=== PATIENT | female | born 1980 | race Caucasian/White ===

== ENCOUNTER → 2017-03-11 | Outpatient (CLI) | payer OTHER ==
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
== END ==
LOC: SLEEP 14:21
PROVIDERS: ATTEND Internal Medicine Critical Care Medicine
DX: E66.9 Obesity, unspecified (principal); J35.1 Hypertrophy of tonsils; F31.9 Bipolar disorder, unspecified; F41.9 Anxiety disorder, unspecified; F17.200 Nicotine dependence, unspecified, uncomplicated; Z88.0 Allergy status to penicillin; Z79.899 Other long term (current) drug therapy; Z68.41 Body mass index [BMI] 40.0-44.9, adult
CPT/HCPCS: 99211

== ENCOUNTER → 2017-08-12 | Outpatient (CLI) | payer OTHER ==
--- NOTE | 2017-08-12 16:11 | PN ---
PROGRESS NOTE Christina is a 37-year-old female patient coming to see me in followup regarding her compliancy for obstructive sleep apnea. The patient has symptomatic GIANFRANCO with an AHI of 15.9. The patient has had successful CPAP therapy at a pressure of 11 cm of water with a C-flex of 3. She is using a Simplus full-face mask. After some difficulty, the patient became much more comfortable with the treatment and currently she is benefitting from the treatment. She is wearing it every night. Her compliance data over the past 30 days show that the patient has been achieving around 6.3 hours of CPAP use per night. Her compliance for more than 4 hours is 28/30. The AHI is down to 0.7 and the leak factor is only 7 L/minute. The patient is trying to lose weight; however, she has not been able to do so and she has gained around 6 pounds since her last evaluation. Overall she is feeling better. She is happy with the treatment. Sleep quality has improved. She feels much more alert and refreshed during the day. REVIEW OF SYSTEMS: CONSTITUTIONAL: Positive for weight gain. No snoring while on CPAP treatment. No nocturnal shortness of breath, chest pain or palpitations or heartburn. No body aches or pains. No nausea or vomiting. No falling asleep during day-to-day activities. No sleep paralysis, hallucinations or cataplexy. PHYSICAL EXAMINATION: BP is 140/93, pulse 94, respiration 16, weight 277, temperature 98.0, saturation 98% on room air. GENERAL APPEARANCE: Calm and comfortable. Head is atraumatic, normocephalic. Neck is supple. There is no JVD. No goiter or neck masses. Poor dental conditions. The patient has a Mallampati class IV. LUNGS: Clear to auscultation. HEART: Heart sounds are regular rate and rhythm. Normal S1, S2. No S3, S4. No murmurs. ABDOMEN: Soft, nontender. No organomegaly. EXTREMITIES: No edema. No cyanosis or clubbing. NEUROLOGIC: Alert and oriented x3. No focal neurological deficits. PSYCHIATRIC: The patient has an appropriate mood and affect. SKIN: Negative for any wounds or ulceration. IMPRESSION: 1. Symptomatic obstructive sleep apnea with an AHI of 15, currently undergoing successful CPAP therapy at a pressure of 11 cm of water with a C-flex of 3 with a full-face mask. 2. Obesity with interval weight gain; currently up to 277 pounds. 3. Bilateral tonsillar enlargement. 4. Chronic anxiety. 5. Bipolar disorder. 6. Poor dental condition. PLAN: 1. Recommend weight loss. 2. Continue CPAP therapy at the same level of pressure. 3. Continue the Simplus full-face mask. 4. No driving, especially if feeling drowsy or sleepy. 5. Sleep hygiene with sleeping 7-1/2 hours per night. 6. See me back in a year's time, earlier if needed. Her treatment is successful at this point. MMODL / IJN: [id number] /
== END | disposition home or self-care (01) ==
LOC: SLEEP 13:50
PROVIDERS: ATTEND Internal Medicine Critical Care Medicine
DX: G47.33 Obstructive sleep apnea (adult) (pediatric) (principal); Z99.89 Dependence on other enabling machines and devices; E66.9 Obesity, unspecified; J35.1 Hypertrophy of tonsils; F31.9 Bipolar disorder, unspecified; K08.89 Other specified disorders of teeth and supporting structures

== ENCOUNTER 2018-04-03 05:38 | Observation (INO) | payer OTHER ==
[2018-04-03 06:21] LABS: Appearance,Urine Clear (Clear); Basophils % (A) 0 %; Bilirubin,Urine 1+ (Negative); Blood,Urine Negative (Negative); Color,Urine Yellow; Eosinophils # (A) 0.1 k/uL (0-0.7); Eosinophils % (A) 1 %; Glucose,Urine (UA) Negative (Negative); HCT 41.7 % (34.0-46.0); HGB 13.8 gm/dL (11.4-16.0); Ketones,Urine 1+ (Negative); Leukocyte Esterase,Urine Negative (Negative); Lymphocytes # (A) 0.4 k/uL (1.0-4.8); Lymphocytes % (A) 5 %; MCH 29.6 pg (25.0-35.0); MCV 89.9 fL (80.0-100.0); Mean Platelet Volume 7.6; Monocytes # (A) 0.1 k/uL (0-1.0); Monocytes % (A) 1 %; Neutrophils # (A) 8.2 k/uL (1.3-7.7); Neutrophils % (A) 93 %; Nitrite,Urine Negative (Negative); Platelet Count 208 k/uL (150-450); Protein,Urine Negative (Negative); RBC 4.65 m/uL (3.80-5.40); RDW 13.7 % (11.5-15.5); Specific Gravity,Urine 1.019 (1.001-1.035); Urobilinogen,Urine <2.0 mg/dL (<2.0); WBC 8.9 k/uL (3.8-10.6)
[2018-04-03] MEDS ORDERED: ONDANSETRON 4 MG/2 ML VIAL IVP PRN (06:23)
[2018-04-03] MEDS ORDERED: NALOXONE 0.4 MG/ML 1 ML VIAL IV PRN (06:23)
--- NOTE | 2018-04-03 06:27 | ED ---
Abdominal Pain HPI - General Chief Complaint: Abdominal Pain Stated Complaint: Gallstones Time Seen by Provider: 04/03/18 05:45 Source: patient, EMS Mode of arrival: EMS Limitations: no limitations - History of Present Illness Initial Comments: This patient is a 38-year-old woman who presents as a transfer from [facility]. The patient had gone there experiencing abdominal pain. She had a computed tomography scan that showed acute cholecystitis with a common bile duct stone. The patient has been having intermittent episodes of epigastric and right upper quadrant abdominal pain since November. She had a workup that did show gallstones in the gallbladder, and she had been scheduled to follow with one of the surgeons local to that facility on the of this month. The patient began to have intractable abdominal pain into the evening and went to the other hospital where the CT scan did show what appeared to be stone in the common bile duct with significant dilatation. The patient also had elevated transaminases and bilirubin. She does receive analgesics and a dose of meropenem. She was transferred here for further treatment. MD Complaint: abdominal pain -: hour(s) Location: epigastric Radiation: back Migration to: no migration Severity: moderate Quality: cramping, sharp Consistency: constant Improves With: nothing Worsens With: nothing Associated Symptoms: nausea - Related Data Allergies Allergy/AdvReac Type Severity Reaction Status Date / Time Iodinated Contrast- Oral and Allergy Itching Verified 04/03/18 05:49 IV Dye Penicillins Allergy Unknown Verified 04/03/18 05:49 Childhood Review of Systems ROS Statement: Those systems with pertinent positive or pertinent negative responses have been documented in the HPI. ROS Other: All systems not noted in ROS Statement are negative. Constitutional: Denies: fever, chills Respiratory: Denies: cough, dyspnea Cardiovascular: Denies: chest pain, palpitations Gastrointestinal: Reports: as per HPI, abdominal pain, nausea. Denies: diarrhea , constipation, melena, hematochezia Genitourinary: Denies: dysuria, hematuria Musculoskeletal: Denies: back pain Skin: Denies: rash Neurological: Denies: headache, weakness, numbness Past Medical History Past Medical History: Hypertension Additional Past Medical History / Comment(s): cholecystitis. sleep apnea. endometriosis. History of Any Multi-Drug Resistant Organisms: None Reported Past Surgical History: Tubal Ligation, Uterine Ablation Past Psychological History: Bipolar Smoking Status: Current every day smoker Past Alcohol Use History: None Reported Past Drug Use History: None Reported General Exam Limitations: no limitations General appearance: alert, in no apparent distress, obese Head exam: Present: atraumatic, normocephalic Eye exam: Present: normal appearance, scleral icterus. Absent: conjunctival injection ENT exam: Present: mucous membranes dry Neck exam: Present: normal inspection Respiratory exam: Present: normal lung sounds bilaterally. Absent: respiratory distress, wheezes, rales, rhonchi, stridor Cardiovascular Exam: Present: regular rate, normal rhythm, normal heart sounds. Absent: systolic murmur, diastolic murmur, rubs, gallop GI/Abdominal exam: Present: soft, tenderness. Absent: distended, guarding, rebound, rigid, mass Extremities exam: Present: normal inspection, normal capillary refill. Absent: pedal edema, calf tenderness Back exam: Present: normal inspection. Absent: CVA tenderness (R), CVA tenderness (L) Neurological exam: Present: alert Skin exam: Present: warm, dry, intact, rash, other (Mild jaundice). Absent: normal color Course Vital Signs 04/03/18 05:40 Temperature 98.8 F Pulse Rate 111 H Respiratory 20 Rate Blood Pressure 130/99 O2 Sat by Pulse 96 Oximetry Medical Decision Making - Lab Data Result diagrams: 04/03/18 06:10 Lab Results 04/03/18 04/03/18 04/03/18 Range/Units 06:10 06:10 06:10 WBC 8.9 (3.8-10.6) k/uL RBC 4.65 (3.80-5.40) m/uL Hgb 13.8 (11.4-16.0) gm/dL Hct 41.7 (34.0-46.0) % MCV 89.9 (80.0-100.0) fL MCH 29.6 (25.0-35.0) pg MCHC 33.0 (31.0-37.0) g/dL RDW 13.7 (11.5-15.5) % Plt Count 208 (150-450) k/uL Neutrophils % 93 % Lymphocytes % 5 % Monocytes % 1 % Eosinophils % 1 % Basophils % 0 % Neutrophils # 8.2 H (1.3-7.7) k/uL Lymphocytes # 0.4 L (1.0-4.8) k/uL Monocytes # 0.1 (0-1.0) k/uL Eosinophils # 0.1 (0-0.7) k/uL Basophils # 0.0 (0-0.2) k/uL Urine Color Yellow Urine Appearance Clear (Clear) Urine pH 7.0 (5.0-8.0) Ur Specific [place] 1.019 (1.001-1.035) Urine Protein Negative (Negative) Urine Glucose (UA) Negative (Negative) Urine Ketones 1+ H (Negative) Urine Blood Negative (Negative) Urine Nitrite Negative (Negative) Urine Bilirubin 1+ H (Negative) Urine Urobilinogen <2.0 (<2.0) mg/dL Ur Leukocyte Esterase Negative (Negative) Urine HCG, Qual Not Detected (Not Detectd) Disposition Clinical Impression: Abdominal pain, Acute cholecystitis, Common bile duct stone, Jaundice, Elevated transaminase level Disposition: ADMITTED IP TO THIS [facility] Condition: Fair Referrals: Thomas Kowalski MD [Primary Care Provider] - 1-2 days
[2018-04-03 06:36] LABS: ALT 460 U/L (9-52); AST 293 U/L (14-36); Albumin 3.8 g/dL (3.5-5.0); Alkaline Phosphatase 325 U/L (38-126); Amylase 41 U/L (30-110); Anion Gap 7 mmol/L; Blood Urea Nitrogen 4 mg/dL (7-17); Calcium 9.6 mg/dL (8.4-10.2); Carbon Dioxide 24 mmol/L (22-30); Chloride 107 mmol/L (98-107); Glucose 146 mg/dL (74-99); Lipase 32 U/L (23-300); Potassium 4.1 mmol/L (3.5-5.1); Sodium 138 mmol/L (137-145); Total Bilirubin 5.9 mg/dL (0.2-1.3); Total Protein 7.3 g/dL (6.3-8.2)
[2018-04-03] MEDS: MORPHINE SULFATE 4 MG/ML SYRINGE IV PRN ×4 (09:45→23:12)
[2018-04-03] MEDS: PANTOPRAZOLE 40 MG/10 ML VIAL IV SCH (09:45)
[2018-04-03] MEDS: SODIUM CHLORIDE 0.9% 1,000 ML IV SCH ×3 (10:25→20:48)
[2018-04-03 10:31] VITALS: BMI 40.0
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
[2018-04-03] MEDS ORDERED: LEVOFLOXACIN 500MG-D5W PMX 500 MG in DEXTROSE/WATER 1 100ML.BAG IVPB SCH (19:00)
[2018-04-03] MEDS ORDERED: QUEtiapine 100 MG TAB PO SCH (21:00)
[2018-04-03] MEDS: NICOTINE 21MG/24HR PATCH TRANSDERM SCH (21:31)
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
[2018-04-03] MEDS: HEPARIN SODIUM,PORCINE 5,000 UNIT/ML 1 ML VIAL SQ SCH (23:16)
[2018-04-04] MEDS: SODIUM CHLORIDE 0.9% 1,000 ML IV SCH ×2 (01:34→13:07)
[2018-04-04] MEDS: MORPHINE SULFATE 4 MG/ML SYRINGE IV PRN ×3 (03:24→14:10)
[2018-04-04 06:15] LABS: Basophils % (A) 0 %; Eosinophils # (A) 0.1 k/uL (0-0.7); Eosinophils % (A) 2 %; HCT 37.9 % (34.0-46.0); HGB 12.3 gm/dL (11.4-16.0); Lymphocytes # (A) 2.2 k/uL (1.0-4.8); Lymphocytes % (A) 28 %; MCH 29.6 pg (25.0-35.0); MCHC 32.5 g/dL (31.0-37.0); MCV 91.1 fL (80.0-100.0); Monocytes # (A) 0.5 k/uL (0-1.0); Monocytes % (A) 6 %; Neutrophils # (A) 5.1 k/uL (1.3-7.7); Neutrophils % (A) 63 %; Platelet Count 190 k/uL (150-450); RBC 4.16 m/uL (3.80-5.40); RDW 13.9 % (11.5-15.5)
[2018-04-04 06:24] LABS: ALT 377 U/L (9-52); AST 211 U/L (14-36); Albumin 3.2 g/dL (3.5-5.0); Alkaline Phosphatase 232 U/L (38-126); Anion Gap 4 mmol/L; Blood Urea Nitrogen 8 mg/dL (7-17); Calcium 9.2 mg/dL (8.4-10.2); Carbon Dioxide 27 mmol/L (22-30); Chloride 108 mmol/L (98-107); Glucose 90 mg/dL (74-99); Sodium 139 mmol/L (137-145); Total Bilirubin 1.5 mg/dL (0.2-1.3); Total Protein 6.3 g/dL (6.3-8.2)
[2018-04-04] MEDS ORDERED: INDOMETHACIN 50MG SUPPOSITORY RECTAL STA (09:19)
[2018-04-04] MEDS: PANTOPRAZOLE 40 MG/10 ML VIAL IV SCH (09:36)
[2018-04-04] MEDS ORDERED: GLYCOPYRROLATE 0.2 MG/ML 2 ML VIAL ONE (10:28)
[2018-04-04] MEDS ORDERED: GLUCAGON 1 MG/ML VIAL ONE (10:28)
[2018-04-04] MEDS ORDERED: NEOSTIGMINE 1 MG/ML 10 ML VIAL ONE (10:28)
[2018-04-04] MEDS ORDERED: MIDAZOLAM 2 MG/2 ML VIAL ONE (10:28)
[2018-04-04] MEDS ORDERED: ONDANSETRON 4 MG/2 ML VIAL ONE (10:28)
[2018-04-04] MEDS ORDERED: LIDOCAINE 1% INJ 10MG/ML (20 ML MDV) ONE (10:28)
[2018-04-04] MEDS ORDERED: PROPOFOL 10 MG/ML 20 ML VIAL IV ONE (10:28)
[2018-04-04] MEDS ORDERED: methylPREDNISolone SOD SUCCI 125 MG/2 ML VIAL ONE (10:28)
[2018-04-04] MEDS ORDERED: diphenhydrAMINE 50 MG/ML 1 ML VIAL ONE (10:28)
[2018-04-04] MEDS ORDERED: ROCURONIUM BROMIDE 10 MG/ML 10 ML VIAL IV ONE (10:28)
[2018-04-04] MEDS ORDERED: SUCCINYLCHOLINE CHLORIDE VIAL 200 MG/10 ML VIAL IV ONE (10:28)
[2018-04-04] MEDS ORDERED: fentaNYL (PF) 50 MCG/ML 2 ML AMP ONE (10:28)
[2018-04-04] MEDS ORDERED: IV FLUID CONTINUATION 1,000 ML IV ONE (10:31)
--- NOTE | 2018-04-04 10:32 | P.CONS ---
History of Present Illness - Reason for Consult Consult date: 04/03/18 Bile duct stone, elevated bilirubin Requesting physician: No Covarrubias - Chief Complaint Abdominal pain - History of Present Illness The patient is a 38-year-old female with a known history of sleep apnea and hypertension who presents as a transfer from an outside hospital for CT findings of a bile duct stone. Per the patient she initially presents to the hospital with complaints of abdominal pain. The patient has had abdominal pain which has been occurring and has had evaluation in the outpatient setting with a diagnosis of symptomatic cholelithiasis. The patient had been scheduled to follow up with surgery for outpatient cholecystectomy next week, however came to the hospital when she had a bout of abdominal pain that was severe in nature. She reports that the pain is generally located above the umbilicus, severe in intensity and can be associated with nausea. The patient states that when the attacks occur and can last for hours in duration. On evaluation the patient had a computed tomography scan at [facility] and was told that she had a bile duct stone. On presentation to [facility] the patient had labs performed which showed a total bilirubin 5.9, alkaline phosphatase 325 , AST 293 and ALTs for 60. The patient denies any fevers or chills and had a WBC of 8.9 and a hemoglobin of 13.8 on presentation. Review of Systems REVIEW OF SYSTEMS: CONSTITUTIONAL: Denies any fevers, chills, weight change or fatigue. CARDIOVASCULAR: Denies any chest pain, palpitations high or low blood pressures RESPIRATORY: Denies any shortness of breath, hemoptysis or cough. GENITOURINARY: No dysuria or hematuria. MUSCULOSKELETAL: No weakness reported. SKIN: Denies any new rashes or lesions, jaundice or pallor. PSYCHIATRIC: Denies any depression or anxiety. NEUROLOGY: Denies headache, denies any new focal deficits. EARS/NOSE/THROAT: No recent hearing change, congestion, nasal discharge or sore throat. EYES: No pain in eyes, discharge or change in vision. GASTROINTESTINAL: As per HPI. Past Medical History Past Medical History: Hypertension, Sleep Apnea/CPAP/BIPAP Additional Past Medical History / Comment(s): Migraines, chronic back pain, bilateral carpal tunnel syndrome-worse of L side, umbilical hernia, gallstones , GIANFRANCO with Cpap History of Any Multi-Drug Resistant Organisms: None Reported Past Surgical History: Tubal Ligation, Uterine Ablation Additional Past Surgical History / Comment(s): D&C, hysteroscopy with novasure ablation. Past Anesthesia/Blood Transfusion Reactions: No Reported Reaction Smoking Status: Current every day smoker - Past Family History Father Family Medical History: Cancer Additional Family Medical History / Comment(s): Father of unknown type of cancer. Mother Additional Family Medical History / Comment(s): Mother was healthy until a MVA and since has had health problems-pt unclear what type of health issues. Medications and Allergies Home Medications Medication Instructions Recorded Confirmed Type Acetaminophen Tab [Tylenol] 1,000 mg PO Q6H PRN 04/03/18 04/03/18 History Acetaminophen/Diphenhydramine 2 tab PO HS 04/03/18 04/03/18 History [Tylenol PM 500-25mg] Melatonin 10 mg PO HS 04/03/18 04/03/18 History QUEtiapine FUMARATE [SEROquel] 300 mg PO HS 04/03/18 04/03/18 History Allergies Allergy/AdvReac Type Severity Reaction Status Date / Time Iodinated Contrast- Oral and Allergy Itching Verified 04/03/18 06:41 IV Dye Penicillins Allergy Unknown Verified 04/03/18 06:41 Childhood Physical Exam Vitals: Vital Signs Temp Pulse Pulse Resp BP BP Pulse Ox 04/03/18 20:10 98.0 F 78 20 113/78 97 04/03/18 15:32 98.1 F 89 20 132/88 99 04/03/18 10:00 98.1 F 90 20 129/87 95 04/03/18 09:39 95 18 145/94 98 04/03/18 05:40 98.8 F 111 H 20 130/99 96 Intake and Output 04/03/18 04/03/18 04/04/18 14:59 22:59 06:59 Intake Total 600 Balance 600 Intake: Oral 600 Other: Voiding Method Toilet Toilet # Voids 3 1 Weight 120.4 kg On physical examination, patient appears comfortable in no apparent distress. HEAD: Normocephalic, atraumatic. EYES: No scleral icterus. No conjunctival injection. MOUTH: No lesions, tongue midline. NECK: Trachea midline, no gross abnormalities. CHEST: Clear to auscultation with no wheezing or rhonchi appreciated. HEART: Regular rate and rhythm. ABDOMEN: Soft, obese. Bowel sounds are positive. No organomegaly. No guarding or rigidity. EXTREMITIES: No pedal edema. SKIN: No rashes, no jaundice. NEUROLOGIC: Alert and oriented x3. No focal deficits. Results CBC & Chem 7: 04/04/18 05:59 04/04/18 05:59 Labs: Abnormal Lab Results - Last 24 Hours (Table) 04/03/18 04/03/18 04/03/18 Range/Units 06:10 06:10 06:10 Neutrophils # 8.2 H (1.3-7.7) k/uL Lymphocytes # 0.4 L (1.0-4.8) k/uL BUN 4 L (7-17) mg/dL Glucose 146 H (74-99) mg/dL Total Bilirubin 5.9 H (0.2-1.3) mg/dL AST 293 H (14-36) U/L ALT 460 H (9-52) U/L Alkaline Phosphatase 325 H (38-126) U/L Urine Ketones 1+ H (Negative) Urine Bilirubin 1+ H (Negative) Assessment and Plan (1) Common bile duct stone Narrative/Plan: Seen on CT imaging at [facility]. The patient has a known history of some choledocholithiasis and was scheduled for outpatient cholecystectomy. Elevation in liver enzymes with a cholestatic and hepatocellular pattern, with a bilirubin of 5.9 on presentation. Current Visit: Yes Status: Acute Code(s): K80.50 - CALCULUS OF BILE DUCT W/ O CHOLANGITIS OR CHOLECYST W/O OBST SNOMED Code(s): 902353187 (2) Elevated transaminase level Narrative/Plan: Secondary to above. Current Visit: Yes Status: Acute Code(s): R74.0 - NONSPEC ELEV OF LEVELS OF TRANSAMNS & LACTIC ACID DEHYDRGNSE SNOMED Code(s): 260276368 (3) Abdominal pain Current Visit: Yes Status: Acute Code(s): R10.9 - UNSPECIFIED ABDOMINAL PAIN SNOMED Code(s): 52247771 Plan: Supportive care Clear liquids, nothing by mouth after midnight Plan for ERCP in the morning Patient on antibiotic therapy with levofloxacin Will order preprocedure Indocin Continue to trend liver enzymes The risks, benefits and steps involved in the ERCP were explained to the patient , her partner and her daughter in great length, all their questions and concerns were answered. We will plan to proceed with the procedure tomorrow. Thank you for allowing us to participate in the care of this patient we will continue to follow
[2018-04-04] MEDS ORDERED: IOPAMIDOL-300 50ML BTL MISCELLANE ONE (11:15)
--- NOTE | 2018-04-04 12:31 | P.PCN ---
Date of Procedure: 04/04/18 Description of Procedure: Brief history: Patient is a 38 year-old pleasant female scheduled for an ERCP as part of evaluation of abdominal pain and elevated serum transaminases prompting her to present to [facility] where she had a computed tomography scan which was significant for a bile duct stone. After transferred to [facility] the patient was found to have a bilirubin of 5.9. Procedure performed: ERCP with sphincterotomy, balloon sweep and cholangiogram Preoperative diagnoses: Choledocholithiasis, elevated bilirubin, abnormal CT imaging IV sedation per anesthesia: General anesthesia Estimated blood loss: Minimal. Procedure: After informed consent was obtained from the patient and after the risks benefits and complications including bleeding perforation and pancreatitis explained in detail the patient was brought into the endoscopy unit. The patient was intubated and placed in prone position and IV sedation was administered by anesthesia under continuous monitoring. The Olympus side- viewing duodenoscope was then inserted into the mouth and esophagus intubated without any difficulty. The scope was gradually advanced into the stomach and duodenum. The major papilla was identified without any difficulty. Intubation with a sphincterotome was achieved and a wire was passed into the common bile duct. Cholangiogram was performed and was significant for a diffusely enlarged 10 mm common bile duct with a filling defect in the mid common bile duct suggestive of choledocholithiasis. A 9 mm sphincterotomy was then performed with no bleeding noted. The sphincterotome was then removed and a balloon passed over the wire into the common bile duct. This was inflated to size of 8.5 mm in the common bile duct was swept with debris and 3 small gallstones removed. A repeat cholangiogram was then performed with no filling defect noted. The common bile duct was then swept with the balloon to ensure removal of dye in the procedure was completed without any complications. The patient tolerated the procedure well. Impression: 1. Choledocholithiasis revealed on cholangiogram and removed after sphincterotomy and balloon sweep. Recommendations: The findings of this examination were discussed with the patient as well as a family, including her and sister. Patient is okay to resume diet. Patient and family members have been instructed to watch for signs and symptoms of pancreatitis. Patient is scheduled for cholecystectomy on 04/13/2018. If patient is feeling well she is okay for discharge from gastroenterology for follow-up appointments as scheduled. She has been informed that if any further signs or symptoms of abdominal pain or symptomatic cholelithiasis or cholecystitis should occur she should present back to the emergency department immediately.
--- NOTE | 2018-04-04 12:32 | FL ---
FLUOROSCOPY 3 minutes and 14 seconds of fluoroscopy time were utilized during ERCP. 3 images document the procedu re.
[2018-04-04] MEDS: NICOTINE 21MG/24HR PATCH TRANSDERM SCH (12:59)
[2018-04-04] MEDS: HEPARIN SODIUM,PORCINE 5,000 UNIT/ML 1 ML VIAL SQ SCH (13:05)
[2018-04-04 13:08] VITALS: TEMP 97.6
[2018-04-04 13:30] VITALS: RESP 18
[2018-04-04 14:18] VITALS: PULSE 71
[2018-04-04 14:19] VITALS: BP 121/82
--- NOTE | 2018-04-04 14:23 | P.PN ---
Subjective Progress Note Date: 04/04/18 CHIEF COMPLAINT: Choledocholithiasis HISTORY OF PRESENT ILLNESS: The patient is a 38-year-old female who presents as a transfer from [facility] to [facility]. She and her family is well known to me. She reports in the past month developing abdominal pain along the epigastrium and was evaluated with findings of symptomatic gallstones. In fact, she is scheduled to undergo surgery in 9 days. She then developed an acute attack within the last few days with impacted gallstones of the common bile duct. She has just completed an ERCP with removal of 3 stones from the common bile duct as well as sphincterotomy. Her is at bedside. She is yet to start diet. PHYSICAL EXAM: VITAL SIGNS: Currently stable. GENERAL: Well-developed in no acute distress. HEENT: No sclera icterus. Extraocular movements grossly intact. Moist buccal mucosa. Head is atraumatic, normocephalic. Hears conversational speech. No nasal drainage. NECK: Supple without lymphadenopathy. CHEST: Non-labored respirations and equal bilateral excursions. CARDIOVASCULAR: Regular rate with regular rhythm. Palpable 2+ radial pulses. ABDOMEN: Soft. Nondistended. Mild tenderness epigastrium MUSCULOSKELETAL: No clubbing, cyanosis or edema. NEUROLOGIC: No focal or lateralizing signs. Cranial nerves II through XII grossly intact. PSYCH: Appropriate affect. Alert and oriented to person, place and time. SKIN: Well perfused. Good skin turgor. LABS: Reviewed ASSESSMENT: 1. Choledocholithiasis 2. Morbid obesity due to excess calories, BMI 39.2 3. Symptomatic gallstones PLAN: 1. She is pending surgery at her local facility. 2. She is concerned for recurrent attack as inpatient cholecystectomy has been deferred. 3. She was described her options including surgery prior to discharge as moderate stones were identified along the common bile duct 4. Otherwise, patient has been cleared for discharge from a GI standpoint. 5. Low-fat diet advised. Objective - Vital Signs Vital signs: Vital Signs Temp 97.6 F 04/04/18 12:45 Pulse 73 04/04/18 13:15 Resp 18 04/04/18 13:15 BP 126/85 04/04/18 13:15 Pulse Ox 99 04/04/18 13:15 Intake & Output 1104/04/18 04/04/18 18:59 06:59 18:59 Intake Total 600 960 Balance 600 960 Weight 120.4 kg Intake: IV 600 Oral 600 360 Other: Voiding Method Toilet # Voids 3 1 1 - Labs CBC & Chem 7: 04/04/18 05:59 04/04/18 05:59 Labs: Abnormal Lab Results - Last 24 Hours (Table) 04/04/18 Range/Units 05:59 Chloride 108 H (98-107) mmol/L Total Bilirubin 1.5 H (0.2-1.3) mg/dL AST 211 H (14-36) U/L ALT 377 H (9-52) U/L Alkaline Phosphatase 232 H (38-126) U/L Albumin 3.2 L (3.5-5.0) g/dL
--- NOTE | 2018-04-04 17:13 | DS ---
DISCHARGE SUMMARY DATE OF SERVICE: 04/04/2018. FINAL DIAGNOSES: 1. Right upper quadrant abdominal pain possibly choledocholithiasis. 2. Symptomatic cholelithiasis. 3. Hyperbilirubinemia. 4. Hypertension. 5. Obstructive sleep apnea. 6. Bilateral . 7. Chronic back pain. 8. Migraine headache. DISCHARGE DISPOSITION: The patient is being discharged in stable condition with guarded prognosis. HISTORY OF PRESENT ILLNESS: This 38-year-old woman with a past history of multiple medical problems, was admitted with right upper quadrant abdominal pain choledocholithiasis. Patient evaluated by Surgery and as well as Dr. Schneider from Gastroenterology. ERCP and CBD stones were extracted. Sphincterotomy was also done. Patient improved significantly. The patient was given the option of staying here and having the cholecystectomy done in the hospital, but the patient and family opted to go home at this time. Bilirubin is improved to 1.5. On exam, vitals are stable. Cardiovascular: S1, S2. Abdomen: Soft. Nervous System: No focal deficits. DISCHARGE ADVICE AND MEDICATIONS: 1. Diet is soft, bland. 2. Activity is limited until followup. 3. Follow up with Dr. Kowalski as advised. 4. Follow up with Dr. Heredia as advised. MEDICATIONS: 1. Tylenol p.r.n. 2. Melatonin 10 mg q.h.s. 3. Seroquel 300 mg q.h.s. Followup labs of CMP, amylase, lipase in the outpatient setting. Once again, the patient is discharged in stable condition with guarded prognosis. The patient is keen on going home. MMODL / IJN: [id number] / ADAN
== END 2018-04-04 16:30 | disposition home or self-care (01) ==
LOC: EC 05:38 → 6PED 06:35 → INTOOBSV 06:35 → UNDODISIN 04-04 16:30
PROVIDERS: ADMIT Hospitalist; ATTEND Hospitalist
PROC: 0FC98ZZ Extirpation of Matter from Common Bile Duct, Via Natural or Artificial Opening Endoscopic (ICD-10-PCS; principal; 2018-04-04 09:30)
DX: R10.11 Right upper quadrant pain (principal); R10.13 Epigastric pain; R11.0 Nausea; R74.0 Nonspecific elevation of levels of transaminase and lactic acid dehydrogenase [LDH]; E80.6 Other disorders of bilirubin metabolism; K80.20 Calculus of gallbladder without cholecystitis without obstruction; K80.50 Calculus of bile duct without cholangitis or cholecystitis without obstruction; E66.01 Morbid (severe) obesity due to excess calories; F17.200 Nicotine dependence, unspecified, uncomplicated; G43.909 Migraine, unspecified, not intractable, without status migrainosus; F31.9 Bipolar disorder, unspecified; G47.33 Obstructive sleep apnea (adult) (pediatric); G89.29 Other chronic pain; M54.9 Dorsalgia, unspecified; I10 Essential (primary) hypertension; Z68.39 Body mass index [BMI] 39.0-39.9, adult; Z80.9 Family history of malignant neoplasm, unspecified; Z79.899 Other long term (current) drug therapy; Z88.0 Allergy status to penicillin; Z91.041 Radiographic dye allergy status; Z99.89 Dependence on other enabling machines and devices; M25.862 Other specified joint disorders, left knee; M25.861 Other specified joint disorders, right knee
CPT/HCPCS: 99285; 36415; 80053 ×2; 82150; 83690; 85025 ×2; 81003; 81025; 74328; 43264; 43262; G0378 ×2; S4990 ×2; J2250; J0330; J2270 ×2; J1200; J1610; J1644 ×2; J2710; J2930; J2405 ×2; J1956; J2001; J3010; J2704; C9113 ×2; Q9967